=== PATIENT | female | born 1950 | race Caucasian/White ===

== ENCOUNTER 2017-05-04 11:01 | Outpatient (CLI) | payer OTHER ==
--- NOTE | 2017-05-04 11:39 | DIAGNOSTIC IMAGING REPORT ---
PROCEDURE: DEXA BONE DENSITY STUDY CLINICAL INDICATION: SCREENING COMPARISON: None. FINDINGS: LUMBAR SPINE: Bone mineral density 1.059 g/cm2, T score 0.1 normal LEFT HIP: Bone mineral density 1.089 g/cm2, T score 1.2 normal LEFT FEMORAL NECK: Bone mineral density 0.866 g/cm2, T score 0.2 normal FRACTURE RISK CALCULATION ( when applicable): 10-year fracture risk of a major osteoporotic fracture and of a hip fracture not reported because all T-scores at or above -1.0 (T score greater or equal to -1.0 to: NORMAL) (T score from -1.1 to -2.4: OSTEOPENIA) (T score ess than or equal to -2.5: OSTEOPOROSIS) IMPRESSION: 1. Normal spine hip and femoral neck bone mineral density
== END 2017-05-04 23:00 ==
LOC: XR SRH 11:01
DX: Z13.820 Encounter for screening for osteoporosis (principal)